=== PATIENT | female | born 2000 | race Caucasian/White ===

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

== ENCOUNTER 2023-05-04 10:54 | Day surgery (SDC) | payer OTHER ==
[2023-04-30 11:14] VITALS: BMI 19.8
[2023-05-04] MEDS ORDERED: Midazolam HCl 2 mg/2 ml Vial ONE (11:42)
[2023-05-04] MEDS ORDERED: fentaNYL PF 100 MCG/2 ML SYRINGE ONE (11:42)
[2023-05-04] MEDS ORDERED: Propofol 1,000 MG/100 ML VIAL IV ONE (11:43)
[2023-05-04] MEDS ORDERED: Lidocaine 2% PF 5 ML VIAL ONE (11:53)
[2023-05-04] MEDS ORDERED: Vancomycin 1 GM VIAL ONE (11:53)
[2023-05-04] MEDS ORDERED: Bupivacaine HCl 0.5%/Epinephrine 1:200,000/PF 30 ml Vial ONE (11:53)
[2023-05-04] MEDS ORDERED: Sodium Chloride 0.9% 100 ML ONE (11:58)
[2023-05-04] MEDS ORDERED: CEFAZOLIN 2 GM VIAL ONE (11:58)
[2023-05-04] MEDS ORDERED: CEFAZOLIN 1 GM VIAL ONE (12:04)
[2023-05-04 12:05] LABS: BHCG - Serum Negative (NEGATIVE); Pregs Control Background? CLEAR/WHITE (CLR/WHITE); Pregs Control Bar Appear? YES (CONTROL BAR)
[2023-05-04] MEDS ORDERED: PROPOFOL 200 MG/20 ML VIAL ONE (12:13)
[2023-05-04] MEDS ORDERED: Ondansetron PF 4 MG/2 ML Vial ONE (12:13)
[2023-05-04] MEDS ORDERED: Lidocaine 1% PF 5 ML VIAL ONE (12:13)
[2023-05-04] MEDS ORDERED: Rocuronium Bromide 10 MG/ML (10ML VIAL) ONE (12:13)
[2023-05-04] MEDS ORDERED: PHENYLEPHRINE-NS 100 MCG/ML 10 ML SYRINGE ONE (12:13)
[2023-05-04] MEDS ORDERED: Dexamethasone 20 MG/5 ML VIAL ONE (12:13)
[2023-05-04] MEDS ORDERED: Phenylephrine 10 MG/ML VIAL ONE (12:56)
[2023-05-04] MEDS ORDERED: methylPREDNISolone Acetate 40 mg/ml Vial ONE (13:35)
[2023-05-04] MEDS ORDERED: SUGAMMADEX SODIUM 200 MG/2 ML VIAL ONE (14:13)
[2023-05-04] MEDS ORDERED: fentaNYL 50 mcg/mL 1 mL Vial ONE ×2 (14:55→15:09)
[2023-05-04] MEDS ORDERED: Meperidine HCl/PF 25 MG/ML VIAL ONE (15:02)
[2023-05-04] MEDS ORDERED: Morphine 2 MG/ML VIAL ONE (17:22)
== END 2023-05-04 17:36 | disposition home or self-care (01) ==
LOC: SDC 10:54
PROVIDERS: ATTEND Specialist
PROC: 00WV0MZ Revision of Neurostimulator Lead in Spinal Cord, Open Approach (ICD-10-PCS; principal; 2023-05-04)
DX: G90.50 Complex regional pain syndrome I, unspecified (principal); G89.4 Chronic pain syndrome
CPT/HCPCS: 72070; 84703; C1778; J0690; J1030; J1100; J2001; J2175; J2250; J2272; J2370; J2405; J2704; J3010; J3370; J3490